=== PATIENT | male | born 1950 | race Caucasian/White ===

== ENCOUNTER 2018-03-23 17:24 | Emergency (ER) | payer OTHER ==
[2018-03-23] MEDS ORDERED: NS 1,000 ML IV ONE (17:31)
--- NOTE | 2018-03-23 17:35 | EDPHY ---
H & P Time Seen by Provider: 03/23/18 17:25 HPI/ROS: CHIEF COMPLAINT: Syncope HISTORY OF PRESENT ILLNESS: The patient is a 67-year-old man has a history of mitral valve repair and Maze procedure for atrial fibrillation in 2016. He is no longer taking anticoagulants. Today he was with his when he sat down on a barstool and ordered a drink. Before his drink came he began to feel lightheaded and slumped over in the stool. His family helped him to the ground. He was unconscious for few seconds. No seizure-like activity. He did not suffer any trauma. He states that he had some stomach cramping just before the episode. He denies vertigo sensation. He did not vomit. The stomach cramping is now resolved. No diarrhea. No recent illness. No chest pain. No shortness of breath. Severity: Moderate Modifying factors: None REVIEW OF SYSTEMS: Constitutional: denies: chills, fever, recent illness, recent injury EENTM: denies: blurred vision, double vision, nose congestion Respiratory: denies: cough, shortness of breath Cardiac: See HPI denies: chest pain, irregular heart rate, palpitations Gastrointestinal/Abdominal: See HPI denies: abdominal pain, diarrhea, nausea, vomiting, blood streaked stools Genitourinary: denies: dysuria, frequency, hematuria, pain Musculoskeletal: denies: joint pain, muscle pain Skin: denies: lesions, rash, jaundice, bruising Neurological: denies: headache, numbness, paresthesia, tingling, dizziness, weakness Hematologic/Lymphatic: denies: blood clots, easy bleeding, easy bruising Immunologic/allergic: denies: HIV/AIDS, transplant 10 systems reviewed and negative except as noted EXAM: GENERAL: Well-appearing, well-nourished and in no acute distress. HEAD: Atraumatic, normocephalic. EYES: Pupils equal round and reactive to light, extraocular movements intact, sclera anicteric, conjunctiva are normal. ENT: TMs normal, nares patent, oropharynx clear without exudates. Moist mucous membranes. NECK: Normal range of motion, supple without lymphadenopathy or JVD. LUNGS: Breath sounds clear to auscultation bilaterally and equal. No wheezes rales or rhonchi. HEART: Regular rate and rhythm without murmurs, rubs or gallops. ABDOMEN: Soft, nontender, normoactive bowel sounds. No guarding, no rebound. No masses appreciated. BACK: No CVA tenderness, no spinal tenderness, step-offs or deformities EXTREMITIES: Normal range of motion, no pitting or edema. No clubbing or cyanosis. NEUROLOGICAL: Cranial nerves II through XII grossly intact. Normal speech, normal gait. 5/5 strength, normal movement in all extremities, normal sensation , normal reflexes PSYCH: Normal mood, normal affect. SKIN: Warm, dry, normal turgor, no visible rashes or lesions. Source: Patient, Family, EMS Exam Limitations: No limitations - Medical/Surgical History Hx Asthma: No Hx Chronic Respiratory Disease: No Hx Diabetes: No Hx Cardiac Disease: No Hx Renal Disease: No Hx Cirrhosis: No Hx Alcoholism: No Hx HIV/AIDS: No Hx Splenectomy or Spleen Trauma: No Other PMH: Aortic valve repair, atrial fibrillation now post Maze procedure. - Family History Significant Family History: No pertinent family hx - Social History Smoking Status: Never smoked Alcohol Use: Sober Constitutional: Initial Vital Signs Temperature (C) 36.7 C 03/23/18 17:35 Heart Rate 71 03/23/18 17:35 Respiratory Rate 16 03/23/18 17:35 Blood Pressure 118/83 H 03/23/18 17:35 O2 Sat (%) 100 03/23/18 17:35 O2 Delivery Mode Room Air Allergies/Adverse Reactions: Penicillins Allergy (Mild, Verified 03/23/18 17:34) Rash Home Medications: Medication Instructions Recorded Aspirin [Aspirin 81mg (*)] 81 mg PO DAILY #0 tab.chew 11/21/15 Minocycline HCl 03/23/18 Medical Decision Making - Diagnostics EKG Interpretation: An EKG obtained and was read and documented in trace view. Please see trace view for full reading and report. Sinus rhythm, borderline prolonged p.r.n. Interval, no acute ischemic changes, similar to previous ED Course/Re-evaluation: 7:10 p.m. the patient is feeling completely well. We discussed his test results which are reassuring. [place] syncope Rule score 0. He feels comfortable with this and is eager to go home. His agrees. We discussed indications for returning to the emergency department. He will follow up with his telephone maintenance mechanic Dr. Miles this week. 7:30 p.m. before being discharged the patient asked me about his stomach cramping and why he may have had stomach cramping just before a syncopal episode. A palpated his abdomen again. It is nontender. No palpable or pulsatile mass. He currently is asymptomatic. I offered to perform CT scanning of his abdomen to rule out aneurysm etc. He declines and states that he does not think that this is necessary. His agrees. He is able to ambulate here without difficulty. His vital signs have been stable. We discussed indications for returning if he has any more lightheadedness or abdominal cramping. He states that often he feels this way just before he gets the flu. I told him that this may be a possibility. He denies abdominal pain. He denies chest pain or shortness of breath. Differential Diagnosis: Partial list of the Differential diagnosis considered include but were not limited to; syncope, arrhythmia, dehydration, electrolyte abnormality, hypotension and although unlikely based on the history and physical exam, I also considered head injury, acute coronary disease, seizure, substance abuse, medication effect. I discussed these differential diagnoses and the plan with the patient as well as the usual and expected course. The patient understands that the diagnosis is provisional and that in medicine we are not always correct and that further workup is often warranted. Usual and customary warnings were given. All of the patient's questions were answered. The patient was instructed to return to the emergency department should the symptoms at all worsen or return, otherwise to followup with the physician as we discussed. - Data Points Laboratory Results: Laboratory Results 03/23/18 17:30 03/23/18 17:30 03/23/18 03/23/18 03/23/18 17:41 17:30 17:30 WBC RBC Hgb Hct MCV MCH MCHC RDW Plt Count MPV Neut % (Auto) Lymph % (Auto) [place] % (Auto) Eos % (Auto) Baso % (Auto) Nucleat RBC Rel Count Absolute Neuts (auto) Absolute Lymphs (auto) Absolute Monos (auto) Absolute Eos (auto) Absolute Basos (auto) Absolute Nucleated RBC Immature Gran % Immature Gran # PT 13.7 SEC SEC (12.0-15.0) INR 1.03 (0.83-1.16) APTT 26.2 SEC SEC (23.0-38.0) Sodium 136 mEq/L mEq/L (135-145) Potassium 4.0 mEq/L mEq/L (3.5-5.2) Chloride 104 mEq/L mEq/L (97-110) Carbon Dioxide 23 mEq/l mEq/l (22-31) Anion Gap 9 mEq/L mEq/L (6-14) BUN 21 mg/dL mg/dL (7-23) Creatinine 0.9 mg/dL mg/dL (0.7-1.3) Estimated GFR > 60 Glucose 92 mg/dL mg/dL (70-100) Calcium 9.3 mg/dL mg/dL (8.5-10.4) Total Bilirubin 0.7 mg/dL mg/dL (0.1-1.4) Conjugated Bilirubin 0.3 mg/dL mg/dL (0.0-0.5) Unconjugated Bilirubin 0.4 mg/dL mg/dL (0.0-1.1) AST 33 IU/L IU/L (17-59) ALT 26 IU/L IU/L (21-72) Alkaline Phosphatase 94 IU/L IU/L (38-126) POC Troponin I 0.00 ng/mL ng/mL (0.00-0.08) Total Protein 6.6 g/dL g/dL (6.3-8.2) Albumin 3.7 g/dL g/dL (3.5-5.0) Lipase 102 IU/L IU/L (23-300) 03/23/18 17:30 WBC 8.43 10^3/uL 10^3/uL (3.80-9.50) RBC 4.18 10^6/uL L 10^6/uL (4.40-6.38) Hgb 14.3 g/dL g/dL (13.7-17.5) Hct 41.4 % % (40.0-51.0) MCV 99.0 fL fL (81.5-99.8) MCH 34.2 pg H pg (27.9-34.1) MCHC 34.5 g/dL g/dL (32.4-36.7) RDW 12.7 % % (11.5-15.2) Plt Count 178 10^3/uL 10^3/uL (150-400) MPV 10.3 fL fL (8.7-11.7) Neut % (Auto) 63.6 % % (39.3-74.2) Lymph % (Auto) 28.7 % % (15.0-45.0) [place] % (Auto) 6.8 % % (4.5-13.0) Eos % (Auto) 0.6 % % (0.6-7.6) Baso % (Auto) 0.2 % L % (0.3-1.7) Nucleat RBC Rel Count 0.0 % % (0.0-0.2) Absolute Neuts (auto) 5.36 10^3/uL 10^3/uL (1.70-6.50) Absolute Lymphs (auto) 2.42 10^3/uL 10^3/uL (1.00-3.00) Absolute Monos (auto) 0.57 10^3/uL 10^3/uL (0.30-0.80) Absolute Eos (auto) 0.05 10^3/uL 10^3/uL (0.03-0.40) Absolute Basos (auto) 0.02 10^3/uL 10^3/uL (0.02-0.10) Absolute Nucleated RBC 0.00 10^3/uL 10^3/uL (0-0.01) Immature Gran % 0.1 % % (0.0-1.1) Immature Gran # 0.01 10^3/uL 10^3/uL (0.00-0.10) PT INR APTT Sodium Potassium Chloride Carbon Dioxide Anion Gap BUN Creatinine Estimated GFR Glucose Calcium Total Bilirubin Conjugated Bilirubin Unconjugated Bilirubin AST ALT Alkaline Phosphatase POC Troponin I Total Protein Albumin Lipase Medications Given: Discontinued Medications Sodium Chloride (Ns) 1,000 mls @ 0 mls/hr IV EDNOW ONE; Wide Open PRN Reason: Protocol Stop: 03/23/18 17:32 Last Admin: 03/23/18 17:41 Dose: 1,000 mls Point of Care Test Results: Chemistry 03/23/18 17:41 POC Troponin I 0.00 ng/mL ng/mL (0.00-0.08) Departure - Departure Disposition: Home, Routine, Self-Care Clinical Impression: Syncope and collapse Condition: Fair Instructions: Syncope (ED) Referrals: Patient,NotPresent [Unknown] - As per Instructions Anibal Miles MD [Medical Doctor] - 2-3 days without fail
--- NOTE | 2018-03-23 17:41 | CPEKG ---
Test Reason : OPEN Blood Pressure : / mmHG Vent. Rate : 066 BPM Atrial Rate : 066 BPM P-R Int : 214 ms QRS Dur : 091 ms QT Int : 407 ms P-R-T Axes : 000 264 059 degrees QTc Int : 427 ms Sinus rhythm Borderline prolonged AK interval Left anterior fascicular block Probable right ventricular hypertrophy Confirmed by Walt Hurst ([id number]) on 03/23/2018 5:41:05 PM Referred By: Walt Hurst Confirmed By:Walt Hurst
[2018-03-23 17:53] LABS: PLATELET COUNT 178 10^3/uL (150-400)
[2018-03-23 18:32] LABS: INR 1.03 (0.83-1.16); PROTIME(PATIENT) 13.7 SEC (12.0-15.0)
[2018-03-23 19:54] VITALS: BP 109/70
== END 2018-03-23 19:50 | disposition home or self-care (01) ==
LOC: EDUNIT#
DX: R55 Syncope and collapse (principal); E86.9 Volume depletion, unspecified; Z95.4 Presence of other heart-valve replacement
CPT/HCPCS: 84484-ER